=== PATIENT | female | born 1935 | race Caucasian/White ===

== ENCOUNTER 2024-02-29 11:17 | Inpatient (IN) ==
[2024-02-29] MEDS ORDERED: OLANZapine 10 MG VIAL IM PRN (12:30)
[2024-02-29] MEDS ORDERED: MAGNESIUM HYDROXIDE 400 MG/5 ML ORAL.SUSP PO PRN (12:30)
--- NOTE | 2024-02-29 12:40 | Internal Medicine H&P ---
Internal Medicine - H&P: HPI History of Present Illness Chief complaint: INCREASED PARANOIA Severe Sepsis Narrative: Pt originally admitted to [facility] due to paranoid behavior. She started to deteriorate with worsening mental status, poor po intake, and abnormal CXR/labs/vitals. WBCs were elevate, she became febrile, and HR was >100. Chest x-ray concerning for retrocardiac infiltrate versus mass. Her Flu, COVID, and U/A results were benign. Currently reports that she is hurting in her lower abdomen with history of recurrent diverticulitis. Also reports she went 8 [place] [facility] [place]. History is limited by recent paranoid delusions. Review of Systems Status of ROS 10 or more systems reviewed and unremark able except as noted in history and below and unobtainable due to mental status [facility] Medical History (Updated 02/29/24 @ 14:31 by Zana Sanchez MD) Generalized anxiety disorder Adult failure to thrive Edema, unspecified GERD without esophagitis Other specified disorders of bone density and structure, left lower leg Cachexia Venous insufficiency (chronic) (peripheral) Insomnia Anxiety CHF (congestive heart failure) Social History (Updated 02/23/24 @ 23:33 by Nay Cheung [facility]) Smoking status: never smoker Nicotine containing products detail: Patient denies any use of nicotine Family reported no history of tobacco INTERVENTION: patient refused Second hand tobacco smoke exposure: No Within the past year, how often did you have a drink containing alcohol: never Within the past year, how often did you have six or more drinks on one occasion: never Score interpretation: A score less than 3 is consistent with normal alcohol consumption. Alcohol Details: Patient denies any use of any type of alcohol Family reported no history of alcohol INTERVENTION: patient refused Non-prescribed substance use: denies use Non-prescribed substance use details: Patient denies any use of any type of illegal drugs Family reported no history of drug use INTERVENTION: patient refused What is your current living situation: I presently have a place to live Problems where you live: no known problems Problems where you live details: Patient currently a resident of [facility]; this is her second placement since the middle of 12/03 In the past 12 months, utilities in danger of being shut off: no In past 12 months, lack of transportation kept you from medical appts, meetings, work, or getting things needed for daily living: No How hard is it for you to pay for the very basics like food, housing, medical care, and heating: not applicable Past 12 mos, fear food will run out before able to buy more: never true In past 12 months, food didn't last until money to buy more: never true Are you following a diet prescribed by a doctor: Yes Are you following a special diet: Yes Dietary Practices Comments: SNF SW reported regular diet with SATNAM Do you want help finding or keeping work or a job: I do not need or want help Previous occupational history: 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 [employer] Known occupational exposures/hazards: No Known occupational exposures/hazards details: Per Patient Occupational History Comment: 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 [employer] Highest level of school completed/degree received: decline to answer Do you want help with school or training: No Education Comment: Patient reported she graduated from high school Physical activity type: walking Physical activity type details: per patient How many days of moderate to strenuous exercise, like a brisk walk, did you do in the last 7 days: 0 Leisure activities: clubs, art, music, games, fishing and other Leisure activities details: Patient reported she was very involved in her public life Caffeine: No Are you now , , , , never or living with a partner: In a typical week, how many times do you talk on the telephone with family, friends, or neighbors: once per week How often do you get together with friends or relatives: once per week How often do you attend sikh or advent services: 4 or more times per year Do you belong to any clubs or organizations such as sikh groups unions, fraternal or athletic groups, or school groups: yes Total score: 3 Score interpretation: A score of greater than or equal to 2 indicates the lowest level of social isolation. Within the last year, have you been humiliated or emotionally abused in other ways by your partner or ex-partner: no Within the last year, have you been afraid of your partner or ex-partner: no Within the last year, have you been raped or forced to have any kind of sexual activity by your partner or ex-partner: no Within the last year, have you been kicked, hit, slapped, or otherwise physically hurt by your partner or ex-partner: no HARK total score: 0 HARK score interpretation: A score of zero indicates the patient is most likely not affected by intimate partner violence (IPV). How often does anyone, including family, friends and others, physically hurt you : never How often does anyone, including family, friends and others, insult or talk down to you: sometimes How often does anyone, including family, friends and others, threaten you with h arm: sometimes How often does anyone, including family, friends and others, scream or curse at you: never Firearms in home: no Firearms in home details: Patient is a resident at [facility] Do you need help with ADLs: I don't need any help Due to a physical, mental, or emotional condition, do you have difficulty doing errands alone such as visiting a doctor's office or shopping: Yes Little interest or pleasure in doing things: several days Feeling down, depressed, or hopeless: several days Feel stressed/tense/nervous/anxious/difficulty sleeping: only a little Life stressors: divorce/separation and unknown source of stress Life stressor details: Patient reports she misses her and her home Due to disability, difficulty making decisions: Yes (She is restless. limited cognitive ability.) Do you think of yourself as: straight/heterosexual Gender Identity: female Are you currently sexually active: No Are you using contraception or practicing any form of control: No service: No Comment: Patient reported she worked for the but don't join the Meds Home Medications and Allergies Home Medications Medication Instructions Recorded Confirmed Type cholecalciferol (vitamin D3) 25 2,000 unit PO DAILY 02/19/24 02/19/24 History mcg (1,000 unit) capsule diazepam 5 mg tablet (Valium) 5 mg PO BEDTIME anxiety 02/19/24 02/19/24 History ferrous fum-vit C-vit B12-FA 200 1 cap PO DAILY 02/19/24 02/19/24 History mg-250 mg-0.01 mg-1 mg capsule (Hematogen FA) multivitamin with minerals (DAILY 1 tab PO DAILY 02/19/24 02/19/24 History VITAMIN FORMULA-MINERALS tablet) pantoprazole 40 mg tablet,delayed 40 mg PO DAILY 02/19/24 02/19/24 History release (Protonix) trazodone 50 mg tablet 50 mg PO BEDTIME 02/19/24 02/19/24 History acetaminophen 325 mg tablet 650 mg (2 x 325 mg) PO Q4H PRN 02/29/24 Rx Fever Of 100.5 Or Greater #30 tabs cholecalciferol (vitamin D3) 25 2,000 unit PO DAILY vitamin 02/29/24 Rx mcg (1,000 unit) capsule (Vitamin deficiency #30 caps D3) ferrous fum-vit C-vit B12-FA 200 1 cap PO DAILY vitamin deficiency 02/29/24 Rx mg-250 mg-0.01 mg-1 mg capsule #30 caps lorazepam 0.5 mg tablet 0.25 mg (1/2 x 0.5 mg) PO Q4H PRN 02/29/24 Rx Give if CIWA>8 as needed #60 tabs magnesium hydroxide 400 mg/5 mL 2,400 mg (30 mL) PO DAILY PRN 02/29/24 Rx oral suspension (Milk of Magnesia) Constipation #300 mL megestrol 40 mg tablet 40 mg PO BID appetite stimulant 02/29/24 Rx #60 tabs multivitamin with folic acid 400 1 tab PO DAILY vitamin deficiency 02/29/24 Rx mcg tablet (Tab-A-Lucho) #30 tabs olanzapine 10 mg intramuscular 2.5 mg IM TID PRN Give if pt 02/29/24 Rx solution refuses PO zyprexa #3 ea olanzapine 5 mg tablet 2.5 mg (1/2 x 5 mg) PO TID 02/29/24 Rx psychosis #90 tabs pantoprazole 40 mg tablet,delayed 40 mg PO DAILY GERD #30 tabs 02/29/24 Rx release Allergies Allergy/AdvReac Type Severity Reaction Status Date / Time doxycycline Allergy Unknown Verified 02/18/24 23:34 erythromycin base Allergy Unknown Verified 02/18/24 23:34 furosemide (From Lasix) Allergy Unknown Verified 02/18/24 23:34 ibuprofen Allergy Unknown Verified 02/18/24 23:34 Penicillins Allergy Unknown Verified 02/18/24 23:34 Sulfa (Sulfonamide Allergy Unknown Verified 02/18/24 23:34 Antibiotics) tetracycline Allergy Unknown Verified 02/18/24 23:34 Exam Constitutional: abnormal general appearance (chronically ill) and (frail appearing), no apparent distress, abnormal body habitus (underweight), limitations noted (altered mental status) and (physical limitations) and alert HENMT: normocephalic, head/scalp atraumatic and hearing grossly normal bilaterally Eyes: PERRL, EOMs intact bilaterally and conjunctivae normal Neck/C-Spine: visual inspection normal and trachea midline Respiratory: breath sounds unequal, normal respiratory effort and auscultation abnormal (breath sounds absent) (LLL) Cardiovascular: heart rate abnormal (tachycardic), regular rhythm noted and murmur noted (systolic) Gastrointestinal: abdomen soft to palpation, nontender to palpation, nondistended and normoactive bowel sounds Genitourinary: no CVA tenderness Extremities: normal to inspection, normal to palpation and no tenderness Neurology: gait abnormality noted and speech abnormality noted Psychiatry: mental status abnormal, orientation abnormal, thought process abnormality noted, cooperative, affect abnormality noted and psychomotor abnormality noted Assessment and Plan Assessment and Plan (1) Severe sepsis: Assessment and Plan: WBCs, temp, HR, likely LLL pneumonia. RPP, Vanc/Rocephin/Zithromax, IVFs, CT C/A/P pending. Flu, COVID, U/A negative. Code(s): A41.9 - Sepsis, unspecified organism; R65.20 - Severe sepsis without septic shock (2) Left lower lobe pneumonia: Assessment and Plan: Consider aspiration. CT chest pending. Will worry about getting CT chest with contrast after she is more stable. Qualifiers: Pneumonia type: due to unspecified organism Qualified Code(s): J18.9 - Pneumonia, unspecified organism Code(s): J18.9 - Pneumonia, unspecified organism (3) Adult failure to thrive: Assessment and Plan: Unrestricted diet based on ST recommendations. IV fluids for now. Code(s): R62.7 - Adult failure to thrive (4) Paranoid disorder: Assessment and Plan: Continue meds per psychiatric team. Code(s): F22 - Delusional disorders (5) Major depressive disorder, recurrent, moderate: Assessment and Plan: Per psychiatric team, no med changes. Code(s): F33.1 - Major depressive disorder, recurrent, moderate (6) Cachexia: Assessment and Plan: See above Code(s): R64 - Cachexia (7) Delusional disorder: Assessment and Plan: See above Code(s): F22 - Delusional disorders Plan Will treat for left lower lobe pneumonia for now. Will adjust antibiotics after CT and over the next 24-48 hours.
[2024-02-29] MEDS: RINGER'S SOLUTION,LACTATED 1,000 ML IV SCH (12:59)
[2024-02-29] MEDS: VANCOMYCIN HCL 1,000 MG in 0.9 % SODIUM CHLORIDE 250 ML IV ONE (13:00)
--- NOTE | 2024-02-29 13:11 | Discharge Summary ---
DS: Providers Provider Date of admission: 02/29/24 11:17 Primary care physician: Celi Floyd MD Consults: 02/29/24 12:30 Consult to Physical Therapy Routine Comment: Consulting Provider: Reason for consultation: BLE WEAKNESS Has provider been notified: Yes Physician Instructions: PT EVALUATION Discharging clinician: Celi Floyd Anticipated date of discharge: 02/29/24 DS: Diagnosis Discharge Diagnosis (1) Severe sepsis: (2) Adult failure to thrive: (3) Paranoid disorder: (4) Major depressive disorder, recurrent, moderate: DS: Summary Hospital Course Hospital Course: Patient is a 88 year old WF that was seen today in the long term unit for discharge visit for approximately 20 minutes [id number] by provider Nereida Ramos at [address] [place] [address] in [place], [place]. Patient was observed sitting in a gerichair with her eyes closed. She received IV antibiotics through the night. Vancomycin and some fluids. She woke up for provider and provider gave her some sips of water. Patient will be discharged to the longterm facility on the medical/surgical floor today. Patient will be discharged on some psychiatric medications and these medications have been prescribed to decrease the likelihood of patient relapsing with symptoms of agitation, aggression, or irritability. Patients speech is clear but soft and low. Patient is alert and oriented. Patient is calm and cooperative. Patient denies having any suicidal or homicidal ideations. Patient makes good eye contact and answers questions appropriately. Provider did not observe any auditory or visual hallucinations. senior principal architect reported that patient was calm and cooperative. Patient slept approximately 3 hours last night. Patient requires some assistance with activities of daily living from the staff. Patient is able to ambulate on the unit. Patient was transferred to the medical/surgical floor for evaluation. I have discussed this plan of care with my collaborating physician, Dr. Celi Floyd and he is in agreement with this plan. Dr. Floyd is immediately available for me if requested. The plan has no changes at this time. Level of care: 42261 Length of visit and documentation: 30 minutes Status at Discharge Functional status at discharge: bed bound Overall status at discharge: other Time Spent with Patient Time attestation: Total time spent providing and/or coordinating discharge services: 30 minutes Time spent: greater than 30 minutes Exam Constitutional: alert Vital Signs - 24 hr 02/27/24 23:54 02/28/24 06:16 Temperature 98.1 F 97.6 F Pulse Rate [Left] 98 H 96 H Respiratory Rate 18 18 Blood Pressure [Le ft Arm] 153/67 128/60 Pulse Oximetry 97 97 Oxygen Delivery Me thod Room Air Room Air Extremities: She is very thin. Neurology: solo truck driver II-XII intact Psychiatry: Mental Status Exam documented in the separate MSE (In H&P under other) cooperative Feel stressed/tense/nervous/anxious/difficulty sleeping: only a little Due to disability, difficulty making decisions: Yes (She is restless. limited cognitive ability.) DS: Data Data Completed and Pending Completed studies during hospitalization: EKG, UA, labs Pending studies at discharge: none Labs on day of discharge: none Discharge Plan Discharge Disposition: [facility] Hospital Condition: Other Discharge Medications: New ferrous fum-vit C-vit B12-FA 200-250-0.01-1 mg Capsule 1 cap PO DAILY Qty: 30 0RF acetaminophen 325 mg Tablet 650 mg PO Q4H PRN (Reason: Fever Of 100.5 Or Greater) Qty: 30 0RF cholecalciferol (vitamin D3) [Vitamin D3] 25 mcg (1,000 unit) Capsule 2,000 unit PO DAILY Qty: 30 0RF olanzapine 5 mg Tablet 2.5 mg PO TID Qty: 90 0RF lorazepam 0.5 mg Tablet 0.25 mg PO Q4H PRN (Reason: Give if CIWA>8 as needed) Qty: 60 0RF magnesium hydroxide [Milk of Magnesia] 400 mg/5 mL Suspension 2,400 mg PO DAILY PRN (Reason: Constipation) Qty: 300 0RF pantoprazole 40 mg Tablet,Delayed Release (Dr/Ec) 40 mg PO DAILY Qty: 30 0RF megestrol 40 mg Tablet 40 mg PO BID Qty: 60 0RF olanzapine 10 mg Recon Soln 2.5 mg IM TID PRN (Reason: Give if pt refuses PO zyprexa) Qty: 3 0RF multivitamin with folic acid [Tab-A-Lucho] 400 mcg Tablet 1 tab PO DAILY Qty: 30 0RF No Action cholecalciferol (vitamin D3) 25 mcg (1,000 unit) capsule 2,000 unit PO DAILY Hematogen FA 200-250-0.01-1 mg capsule 1 cap PO DAILY DAILY VITAMIN FORMULA-MINERALS Tablet 1 tab PO DAILY pantoprazole [Protonix] 40 mg tablet,delayed release (DR/EC) 40 mg PO DAILY trazodone 50 mg tablet 50 mg PO BEDTIME diazepam [Valium] 5 mg tablet 5 mg PO BEDTIME Discharge Orders: Discharge Order (Routine); Ordered 02/29/24 Ordered By: Nereida Ramos Activity: increase activity as tolerated and resume usual activities as tolerated Diet: low salt diet and regular diet Hospital Course: Patient is a 88 year old WF that was seen today in the long term unit for osorio marquez visit for approximately 20 minutes [id number] by provider Nereida Ramos at [address] [place] [address] in [place], [place]. Patient was observed sitting in a gerichair with her eyes closed. She received IV antibiotics through the night. Vancomycin and some fluids. She woke up for provider and provider gave her some sips of water. Patient will be discharged to the longterm facility on the medical/surgical floor today. Patient will be discharged on some psychiatric medications and these medications have been prescribed to decrease the likelihood of patient relapsing with symptoms of agitation, aggression, or irritability. Patients speech is clear but soft and low. Patient is alert and oriented. Patient is calm and cooperative. Patient denies having any suicidal or homicidal ideations. Patient makes good eye contact and answers questions appropriately. Provider did not observe any auditory or visual hallucinations. senior principal architect reported that patient was calm and cooperative. Patient slept approximately 3 hours last night. Patient requires some assistance with activities of daily living from the staff. Patient is able to ambulate on the unit. Patient was transferred to the medical/surgical floor for evaluation. I have discussed this plan of care with my collaborating physician, Dr. Celi Floyd and he is in agreement with this plan. Dr. Floyd is immediately available for me if requested. The plan has no changes at this time. Level of care: 79428 Length of visit and documentation: 30 minutes Plan of Treatment: The overall goal of treatment is to adjust medications to treat increased agitation, aggression, depression, labile mood and affect all likely secondary to declining cognitive functioning. MEDICAL TREATMENT The patient will have a medical workup completed by the hospitalist on admission and as needed throughout the hospitalization to manage acute and chronic medical comorbidities. DISCHARGE CRITERIA: Upon discharge the patient will show improvement in overall level of functioning and behavior. Patients will be free of combative, aggressive, and hostile behaviors. Patients will be free from psychosis and will show improved insight and judgement. Patients will not have any bothersome auditory or visual hallucinations or paranoid ideations. Patient will be free of suicidal ideations or threats of harm to others. ESTIMATED LENGTH OF HOSPITALIZATION: 7-14 days Reason for hospitalization: 1. Potential danger to self and others 2. Impaired social, family and occupational function. 3. Failure of outpatient treatment. 4. Need for intensive structured inpatient treatment. 5. Need for medication stabilization. The overall goal of treatment is to adjust medications to treat bizarre delusions and manic light behaviors. Staff will continue to monitor for unwanted side effects, metabolic symptoms, changes in mood, behavior or symptoms of psychosis. Attempt to stabilize auditory hallucinations and lessen discomfort due to paranoia. Continue to monitor for unwanted side effects to include EPS/TD, metabolic symptoms, changes in mood, behavior or symptoms of psychosis. Monitor for daytime drowsiness or somnolence and unsteadiness. Providers, nurses, and social workers will provide relevant psychoeducation to the patient related to diagnosis, treatment and disposition. The patient will be discussed in treatment team meetings daily and as needed as we work towards transitioning the patient to an appropriate disposition upon discharge. Medications: Stop: Discontinue: Diazepam (Valium) 5mg take 5mg by mouth at bedtime for anxiety and irritability. Discontinue: Trazodone 50mg take 50mg by mouth at bedtime for insomnia. Start CIWA Protocol: Do CIWA every 4 hours. If CIWA > 8, give patient 0.25mg of Lorazepam. Start: Add Lorazepam 0.25mg give 0.25mg if CIWA > 8. every 4 hours. 02/21/2024: Medications: Start: Add Zyprexa 2.5mg take 2.5mg by mouth two times a day for psychosis, agitation, and mood stability. Add Zyprexa 2.5mg IM give 2.5mg IM as needed two times a day for psychosis, agitation, and mood stability if patient refuses her PO Zyprexa. 02/22/2024: Will continue to monitor patients behaviors and will make medication adjustments as needed. 02/23/2024: Will continue to monitor patients behaviors and will make changes as needed. 02/24/2024: Medications: Stop: Discontinue Zyprexa 2.5mg take 2.5mg by mouth two times a day for psychosis, agitation, and mood stability. Start: Add Zyprexa 2.5mg take 2.5mg by mouth three times a day for psychosis, agitation, and mood stability. 02/25/2024: Will continue to monitor patients behaviors and will make medication changes as needed. 02/28/2024: Labs to be drawn. CBC and CMP.
[2024-02-29] MEDS: ACETAMINOPHEN 325 MG TABLET PO PRN (16:00)
[2024-02-29] MEDS: OLANZapine 5 MG TABLET PO SCH (16:00)
[2024-02-29] MEDS: LEVOFLOXACIN/D5W 500 MG/100 ML 500 MG/100 ML PIGGYBACK IV SCH (18:16)
[2024-02-29] MEDS: MEGESTROL ACETATE 40 MG TABLET PO SCH (20:23)
[2024-03-01] MEDS: RINGER'S SOLUTION,LACTATED 500 ML IV ONE (02:58)
[2024-03-01 06:42] LABS: Basophils%(Percent) Auto 0.3 (0.1-0.85); Eosinophils#(Absolute)Auto 0.1 (0.0-0.2); Eosinophils%(Percent) Auto 0.7 % (0.4-2.8); Granulocytes % - Auto 88.3 % (47.8-71.3); Hematocrit 25.8 % (35.9-46.7); Mean Corpuscular Volume 87.9 fl (81.0-93.7); Monocytes #(Absolute)- Auto 0.7 (1.1-3.1); Monocytes %(Percent)- Auto 6.5 % (3.6-9.8); Platelet Count 172 K/uL (152-353); White Blood Count 10.2 K/uL (4.3-9.3)
[2024-03-01 06:48] LABS: Potassium 4.2 mmol/L (3.6-5.2)
[2024-03-01] MEDS ORDERED: CEFTRIAXONE SODIUM 1 GM in 0.9 % SODIUM CHLORIDE MB+ 50 ML IV SCH (09:00)
[2024-03-01] MEDS: CHOLECALCIFEROL 1,000 UNITS TABLET (25 MCG) PO SCH (09:12)
[2024-03-01] MEDS: PANTOPRAZOLE SODIUM 40 MG TABLET.DR PO SCH (09:13)
[2024-03-01] MEDS: MULTIVITAMIN TABLET PO SCH (09:13)
[2024-03-01] MEDS: FOLIC ACID PO SCH (09:38)
[2024-03-01] MEDS: ASCORBIC ACID PO SCH (09:38)
[2024-03-01] MEDS: CYANOCOBALAMIN PO SCH (09:38)
[2024-03-01] MEDS: FERROUS FUMARATE PO SCH (09:38)
[2024-03-01] MEDS: RINGER'S SOLUTION,LACTATED 500 ML IV SCH (10:23)
[2024-03-01] MEDS: VANCOMYCIN HCL 500 MG 500 MG in 0.9 % SODIUM CHLORIDE MB+ 100 ML IV ONE (10:31)
[2024-03-01] MEDS: IPRATROPIUM/ALBUTEROL SULFATE 3 ML AMPUL.NEB INH SCH (15:54)
--- NOTE | 2024-03-01 15:59 | History & Physical Report ---
H&P: HPI History of Present Illness Chief complaint: INCREASED PARANOIA Severe Sepsis Narrative: Pt originally admitted to [facility] due to paranoid behavior. She started to deteriorate with worsening mental status, poor po intake, and abnormal CXR/labs/vitals. WBCs were elevate, she became febrile, and HR was >100. Chest x-ray concerning for retrocardiac infiltrate versus mass. Her Flu, COVID, and U/A results were benign. Currently reports that she is hurting in her lower abdomen with history of recurrent diverticulitis. Also reports [place] [facility] [place] History is limited by recent paranoid delusions. Patient admitted to med/surg for observation and treatment. Review of Systems Status of ROS 10 or more systems reviewed and unremark able except as noted in history and below and unobtainable due to mental status [facility] Medical History (Updated 02/29/24 @ 14:31 by Zana Sanchez MD) Generalized anxiety disorder Adult failure to thrive Edema, unspecified GERD without esophagitis Other specified disorders of bone density and structure, left lower leg Cachexia Venous insufficiency (chronic) (peripheral) Insomnia Anxiety CHF (congestive heart failure) Social History (Updated 02/23/24 @ 23:33 by Nay Cheugn [facility]) Smoking status: never smoker Nicotine containing products detail: Patient denies any use of nicotine Family reported no history of tobacco INTERVENTION: patient refused Second hand tobacco smoke exposure: No Within the past year, how often did you have a drink containing alcohol: never Within the past year, how often did you have six or more drinks on one occasion: never Score interpretation: A score less than 3 is consistent with normal alcohol consumption. Alcohol Details: Patient denies any use of any type of alcohol Family reported no history of alcohol INTERVENTION: patient refused Non-prescribed substance use: denies use Non-prescribed substance use details: Patient denies any use of any type of illegal drugs Family reported no history of drug use INTERVENTION: patient refused What is your current living situation: I presently have a place to live Problems where you live: no known problems Problems where you live details: Patient currently a resident of [facility]; this is her second placement since the middle of 12/03 In the past 12 months, utilities in danger of being shut off: no In past 12 months, lack of transportation kept you from medical appts, meetings, work, or getting things needed for daily living: No How hard is it for you to pay for the very basics like food, housing, medical care, and heating: not applicable Past 12 mos, fear food will run out before able to buy more: never true In past 12 months, food didn't last until money to buy more: never true Are you following a diet prescribed by a doctor: Yes Are you following a special diet: Yes Dietary Practices Comments: SNF SW reported regular diet with SATNAM Do you want help finding or keeping work or a job: I do not need or want help Previous occupational history: 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 [employer] Known occupational exposures/hazards: No Known occupational exposures/hazards details: Per Patient Occupational History Comment: 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 [employer] Highest level of school completed/degree received: decline to answer Do you want help with school or training: No Education Comment: Patient reported she graduated from high school Physical activity type: walking Physical activity type details: per patient How many days of moderate to strenuous exercise, like a brisk walk, did you do in the last 7 days: 0 Leisure activities: clubs, art, music, games, fishing and other Leisure activities details: Patient reported she was very involved in her public life Caffeine: No Are you now , , , , never or living with a partner: In a typical week, how many times do you talk on the telephone with family, friends, or neighbors: once per week How often do you get together with friends or relatives: once per week How often do you attend sabianist or anabaptism services: 4 or more times per year Do you belong to any clubs or organizations such as sabianist groups unions, fraternal or athletic groups, or school groups: yes Total score: 3 Score interpretation: A score of greater than or equal to 2 indicates the lowest level of social isolation. Within the last year, have you been humiliated or emotionally abused in other ways by your partner or ex-partner: no Within the last year, have you been afraid of your partner or ex-partner: no Within the last year, have you been raped or forced to have any kind of sexual activity by your partner or ex-partner: no Within the last year, have you been kicked, hit, slapped, or otherwise physic ally hurt by your partner or ex-partner: no HARK total score: 0 HARK score interpretation: A score of zero indicates the patient is most likely not affected by intimate partner violence (IPV). How often does anyone, including family, friends and others, physically hurt you : never How often does anyone, including family, friends and others, insult or talk down to you: sometimes How often does anyone, including family, friends and others, threaten you with harm: sometimes How often does anyone, including family, friends and others, scream or curse at you: never Firearms in home: no Firearms in home details: Patient is a resident at [facility] Do you need help with ADLs: I don't need any help Due to a physical, mental, or emotional condition, do you have difficulty doing errands alone such as visiting a doctor's office or shopping: Yes Little interest or pleasure in doing things: several days Feeling down, depressed, or hopeless: several days Feel stressed/tense/nervous/anxious/difficulty sleeping: only a little Life stressors: divorce/separation and unknown source of stress Life stressor details: Patient reports she misses her and her home Due to disability, difficulty making decisions: Yes (She is restless. limited cognitive ability.) Do you think of yourself as: straight/heterosexual Gender Identity: female Are you currently sexually active: No Are you using contraception or practicing any form of control: No service: No Comment: Patient reported she worked for the but don't join the [employer] [facility] Home Medications and Allergies Home Medications Medication Instructions Recorded Confirmed Type cholecalciferol (vitamin D3) 25 2,000 unit PO DAILY 02/19/24 02/19/24 History mcg (1,000 unit) capsule diazepam 5 mg tablet (Valium) 5 mg PO BEDTIME anxiety 02/19/24 02/19/24 History ferrous fum-vit C-vit B12-FA 200 1 cap PO DAILY 02/19/24 02/19/24 History mg-250 mg-0.01 mg-1 mg capsule (Hematogen FA) multivitamin with minerals (DAILY 1 tab PO DAILY 02/19/24 02/19/24 History VITAMIN FORMULA-MINERALS tablet) pantoprazole 40 mg tablet,delayed 40 mg PO DAILY 02/19/24 02/19/24 History release (Protonix) trazodone 50 mg tablet 50 mg PO BEDTIME 02/19/24 02/19/24 History acetaminophen 325 mg tablet 650 mg (2 x 325 mg) PO Q4H PRN 02/29/24 Rx Fever Of 100.5 Or Greater #30 tabs cholecalciferol (vitamin D3) 25 2,000 unit PO DAILY vitamin 02/29/24 Rx mcg (1,000 unit) capsule (Vitamin deficiency #30 caps D3) ferrous fum-vit C-vit B12-FA 200 1 cap PO DAILY vitamin deficiency 02/29/24 Rx mg-250 mg-0.01 mg-1 mg capsule #30 caps lorazepam 0.5 mg tablet 0.25 mg (1/2 x 0.5 mg) PO Q4H PRN 02/29/24 Rx Give if CIWA>8 as needed #60 tabs magnesium hydroxide 400 mg/5 mL 2,400 mg (30 mL) PO DAILY PRN 02/29/24 Rx oral suspension (Milk of Magnesia) Constipation #300 mL megestrol 40 mg tablet 40 mg PO BID appetite stimulant 02/29/24 Rx #60 tabs multivitamin with folic acid 400 1 tab PO DAILY vitamin deficiency 02/29/24 Rx mcg tablet (Tab-A-Lucho) #30 tabs olanzapine 10 mg intramuscular 2.5 mg IM TID PRN Give if pt 02/29/24 Rx solution refuses PO zyprexa #3 ea olanzapine 5 mg tablet 2.5 mg (1/2 x 5 mg) PO TID 02/29/24 Rx psychosis #90 tabs pantoprazole 40 mg tablet,delayed 40 mg PO DAILY GERD #30 tabs 02/29/24 Rx release Allergies Allergy/AdvReac Type Severity Reaction Status Date / Time doxycycline Allergy Unknown Verified 02/18/24 23:34 erythromycin base Allergy Unknown Verified 02/18/24 23:34 furosemide (From Lasix) Allergy Unknown Verified 02/18/24 23:34 ibuprofen Allergy Unknown Verified 02/18/24 23:34 Penicillins Allergy Unknown Verified 02/18/24 23:34 Sulfa (Sulfonamide Allergy Unknown Verified 02/18/24 23:34 Antibiotics) tetracycline Allergy Unknown Verified 02/18/24 23:34 Exam Exam: Patient in correia's position with tech at bedside upon entering room for exam. Constitutional: abnormal general appearance (chronically ill) and (frail appearing), no apparent distress, abnormal body habitus (underweight), limitations noted (altered mental status) and (physical limitations) and alert Vital Signs - 24 hr 02/29/24 15:59 02/29/24 16:00 02/29/24 19:13 Temperature 97.6 F 98.0 F Pulse Rate [Left] 98 H 80 Respiratory Rate 16 16 Blood Pressure [Le ft Arm] 101/60 94/42 Pulse Oximetry 97 91 L 93 L Oxygen Delivery Me thod Nasal Cannula Nasal Cannula Nasal Cannula Oxygen Flow Rate 2 2 Fraction of Inspir ed Oxygen 28 02/29/24 23:36 03/01/24 03:45 03/01/24 07:31 Temperature 98.8 F 98.9 F 97.3 F L Pulse Rate [Left] 81 88 108 H Respiratory Rate 18 19 22 Blood Pressure [Le ft Arm] 97/41 99/48 111/61 Pulse Oximetry 93 L 92 L 95 Oxygen Delivery Me thod Nasal Cannula Nasal Cannula Nasal Cannula Oxygen Flow Rate 2 Fraction of Inspir ed Oxygen 03/01/24 11:53 Temperature 98.0 F Pulse Rate [Left] 105 H Respiratory Rate 21 Blood Pressure [Le ft Arm] 106/54 Pulse Oximetry 96 Oxygen Delivery Me thod Nasal Cannula Oxygen Flow Rate 2 Fraction of Inspir ed Oxygen HENMT: normocephalic, head/scalp atraumatic and hearing grossly normal bilaterally Eyes: PERRL, EOMs intact bilaterally and conjunctivae normal Neck/C-Spine: visual inspection normal and trachea midline Lymph: no lymphadenopathy noted and no lymphedema noted Chest: inspection of chest normal and palpation of chest normal Respiratory: breath sounds unequal, normal respiratory effort and auscultation abnormal (breath sounds absent) (LLL) Cardiovascular: heart rate abnormal (tachycardic), regular rhythm noted and murmur noted (systolic) Gastrointestinal: abdomen soft to palpation, nontender to palpation, nondistended and normoactive bowel sounds Genitourinary: no CVA tenderness Back/Pelvis: spine normal to inspection Extremities: normal to inspection, normal to palpation and no tenderness She is very thin. Neurology: casino floor person II-XII intact, gait abnormality noted and speech abnormality noted Psychiatry: Mental Status Exam documented in the separate MSE (In H&P under other) mental status abnormal, orientation abnormal, thought process abnormality noted, cooperative, affect abnormality noted and psychomotor abnormality noted Skin: skin color normal Assessment and Plan Assessment and Plan (1) Severe sepsis: Assessment and Plan: WBCs, temp, HR, likely LLL pneumonia. RPP, Vanc/Rocephin/Zithromax, IVFs, CT C/A/P pending. Flu, COVID, U/A negative. Code(s): A41.9 - Sepsis, unspecified organism; R65.20 - Severe sepsis without septic shock (2) Left lower lobe pneumonia: Assessment and Plan: Consider aspiration. CT chest pending. Will worry about getting CT chest with contrast after she is more stable. Qualifiers: Pneumonia type: due to unspecified organism Qualified Code(s): J18.9 - Pneumonia, unspecified organism Code(s): J18.9 - Pneumonia, unspecified organism (3) Adult failure to thrive: Assessment and Plan: Unrestricted diet based on ST recommendations. IV fluids for now. Code(s): R62.7 - Adult failure to thrive (4) Paranoid disorder: Assessment and Plan: Continue meds per psychiatric team. Code(s): F22 - Delusional disorders (5) Major depressive disorder, recurrent, moderate: Assessment and Plan: Per psychiatric team, no med changes. Code(s): F33.1 - Major depressive disorder, recurrent, moderate (6) Cachexia: Assessment and Plan: See above Code(s): R64 - Cachexia (7) Delusional disorder: Assessment and Plan: See above Code(s): F22 - Delusional disorders Plan Cholecalciferol 2,000 unit PO Daily Megastrol Acetate 40 mg PO BID Olanzapine 2.5 mg PO TID Pantoprazole Sodium 40 mg PO Daily Ferrous Fum-Vit C-Vit B12-Fa (1) cap PO Daily Multivitamins (1) PO Daily Levofloxacin/Dextrose 500 mg in 100 mls @ 50 mls/hr IV Q24H Albuterol Sulfate 3 ml INH RQ4 Budesonide 1 mg INH RBID Lorazepam 0.25 mg PO Q4H PRN Magnesium Hydroxide 2,400 mg PO Daily PRN Olanzapine 2.5 mg IM TID PRN Acetaminophen 650 mg PO Q4H PRN Continue to monitor labs and symptoms. Results Labs Labs: CBC WBC 10.2 K/uL (4.3-9.3) H 03/01/24 06:30 RBC 2.9 M/uL (4.00-5.50) L 03/01/24 06:30 Hgb 8.8 gm/dL (12.5-15.8) L 03/01/24 06:30 Hct 25.8 % (35.9-46.7) L 03/01/24 06:30 MCV 87.9 fl (81.0-93.7) 03/01/24 06:30 MCH 29.9 pg (27.6-32.2) 03/01/24 06:30 MCHC 34.0 g/dl (33.1-35.3) 03/01/24 06:30 RDW 17.2 % (11.4-14.2) H 03/01/24 06:30 Plt Count 172 K/uL (152-353) 03/01/24 06:30 MPV 8.9 fl (6.9-10.8) 03/01/24 06:30 Gran % 88.3 % (47.8-71.3) H 03/01/24 06:30 Lymph % (Auto) 4.2 % (20.0-43.0) L 03/01/24 06:30 [place] % (Auto) 6.5 % (3.6-9.8) 03/01/24 06:30 Eos % (Auto) 0.7 % (0.4-2.8) 03/01/24 06:30 Baso % (Auto) 0.3 (0.1-0.85) 03/01/24 06:30 Lymph # (Auto) 0.4 (1.1-3.1) L 03/01/24 06:30 [place] # (Auto) 0.7 (1.1-3.1) L 03/01/24 06:30 Eos # (Auto) 0.1 (0.0-0.2) 03/01/24 06:30 Baso # (Auto) 0.0 (0.0-0.1) 03/01/24 06:30 Absolute Gran (auto) 9.0 (2.3-6.0) H 03/01/24 06:30 BMP Sodium 141 mmol/L (136-145) 03/01/24 06:30 Potassium 4.2 mmol/L (3.6-5.2) 03/01/24 06:30 Chloride 108.0 mmol/L (98-107) H 03/01/24 06:30 Carbon Dioxide 25 mmol/L (21-32) 03/01/24 06:30 Anion Gap 8.0 mEq/L (4-14) 03/01/24 06:30 BUN 29 mg/dL (7-18) H 03/01/24 06:30 Creatinine 0.7 mg/dL (0.6-1.3) 03/01/24 06:30 Estimated GFR 83.1 (>59.9) 03/01/24 06:30 Glucose 84 mg/dL (70-110) 03/01/24 06:30 Calcium 8.4 mg/dL (8.5-10.1) L 03/01/24 06:30 Imaging Imaging ordered: other (CT Chest,Abdomen, and Pelvis w/o contrast) Radiologist's impression: CT CHEST, ABDOMEN, AND PELVIS WITHOUT CONTRAST Date of Service: 02/29/24 HISTORY: feverfever; COMPARISON: None. TECHNIQUE: Axial CT images were obtained through the chest, abdomen, and pelvis without contrast. Coronal reformatted images were included. All CT scans at this facility use dose modulation, iterative reconstruction, and/or weight based dosing when appropriate to reduce radiation dose to as low as reasonably achievable. FINDINGS: Please note that without the use of intravenous contrast, evaluation of organ parenchyma is limited. CHEST: SUPPORT DEVICES: None HEART, VESSELS, AND MEDIASTINUM: Athero sclerotic disease in the and vessels LYMPH NODES: No pathologically enlarged nodes. LUNGS AND PLEURA: Lungs show multifocal areas lung consolidation worst in the lung bases and worst in the left lower lobe AIRWAYS: Within normal limits. ABDOMEN: LIVER: Within normal limits. GALLBLADDER: Absent SPLEEN: Within normal limits. PANCREAS: Within normal limits. KIDNEYS: Within normal limits. ADRENAL GLANDS: Within normal limits. GI TRACT: Moderate hiatal hernia LYMPH NODES: No abnormally enlarged nodes VESSELS: Within normal limits. PERITONEUM / RETROPERITONEUM: No free gas PELVIS: BLADDER: Within normal limits. GENITALS: Uterus is absent BONES: Scoliosis and multilevel degenerative changes in the spine. Multiple prior anterior compression fractures IMPRESSION: Likely bilateral lung pneumonia affecting the lung bases, [id number]. No definite acute abnormality pelvis. Chronic changes as above
[2024-03-01] MEDS: LORazepam 0.5 MG TABLET PO PRN (20:36)
[2024-03-01] MEDS: BUDESONIDE 0.5 MG/2 ML AMPUL.NEB INH SCH (20:37)
[2024-03-02 05:11] LABS: Basophils%(Percent) Auto 0.3 (0.1-0.85); Eosinophils#(Absolute)Auto 0.1 (0.0-0.2); Granulocytes % - Auto 84.7 % (47.8-71.3); Granulocytes#(Absolute)- Auto 7.8 (2.3-6.0); Hematocrit 24.4 % (35.9-46.7); Mean Corpuscular Volume 87.5 fl (81.0-93.7); Monocytes #(Absolute)- Auto 0.9 (1.1-3.1); Monocytes %(Percent)- Auto 9.5 % (3.6-9.8); Platelet Count 185 K/uL (152-353); White Blood Count 9.2 K/uL (4.3-9.3)
[2024-03-02 06:07] LABS: Potassium 3.6 mmol/L (3.6-5.2)
[2024-03-02 08:07] VITALS: BP 112/53; PULSE 94; RESP 18; TEMP 98.5
--- NOTE | 2024-03-02 10:54 | Discharge Summary ---
DS: Providers Provider Date of admission: 02/29/24 11:17 Primary care physician: Celi Floyd MD Admitting clinician: Zana Sanchez Attending physician on admission: Zana Sanchez Consults: 02/29/24 12:30 Consult to Physical Therapy Routine Comment: Consulting Provider: Reason for consultation: BLE WEAKNESS Has provider been notified: Yes Physician Instructions: PT EVALUATION 03/01/24 12:55 Consult to Occupational Therapy Routine Comment: Consulting Provider: Reason for consultation: weakness and pneumonia Physician Instructions: evaluate and treat Consult to Physical Therapy Routine Comment: Consulting Provider: Reason for consultation: weakness and pneumonia Physician Instructions: chest PT and evaluate and treat Attending physician on discharge: Yovana Santillan Discharging clinician: Yovana Santillan Anticipated date of discharge: 03/02/24 DS: Diagnosis Discharge Diagnosis (1) Left lower lobe pneumonia: Qualifiers: Pneumonia type: due to unspecified organism Qualified Code(s): J18.9 - Pneumonia, unspecified organism (2) Paroxysmal sinus tachycardia: (3) Adult failure to thrive: (4) Paranoid disorder: (5) Major depressive disorder, recurrent, moderate: (6) Cachexia: (7) Delusional disorder: (8) Severe sepsis: (9) Pain: (10) History of falling: Plan Cholecalciferol 2,000 unit PO Daily Megestrol Acetate 40 mg PO BID Olanzapine 2.5 mg PO TID Pantoprazole Sodium 40 mg PO Daily Ferrous Fum-Vit C-Vit B12-Fa (1) Cap PO Daily Multivitamins (1) each PO Daily Levofloxacin/Dextrose 500 mg in 100 mls @ 50 mls/hr IV Q24H Albuterol Sulfate 3 ml INH RQ4 Budesonide 1 mg INH RBID Lorazepam 0.25 mg PO Q4H PRN Magnesium Hydroxide 2,400 mg PO Daily PRN Olanzapine 2.5 mg IM TID PRN Acetaminophen 650 mg PO Q4H PRN Patient symptoms and problems have improved and are progressing back to patients baseline. Patient is ready for discharge and transfer back to Long Term Unit. DS: Summary Hospital Course Hospital Course: Patient originally admitted to [facility] due to paranoid behavior. She started to deteriorate with worsening mental status, poor po intake, and abnormal CXR/labs/vitals. WBCs were elevate, she became febrile, and HR was >100. Chest x-ray concerning for retrocardiac infiltrate versus mass. Her Flu, COVID, and U/A results were benign. Currently reports that she is hurting in her lower abdomen with history of recurrent diverticulitis. Also reports she went 8 days between [facility] before admission here. History is limited by recent paranoid delusions. Patient admitted to [facility] for observation and treatment. Patient responded well to treatment plan, hospital stay was uneventful. Acute symptoms and problems have resolved and/or returned to patient's baseline. Patient is medically ready to discharge from [facility] and transfer back to the Long Term Unit here at [facility]. Patient will receive a follow up appointment by medical provider. Status at Discharge Functional status at discharge: independent ambulation Overall status at discharge: patient is progressing back to baseline Time Spent with Patient Time attestation: Total time spent providing and/or coordinating discharge services: Time spent: greater than 30 minutes Exam Exam: Patient resting in correia's position, taking breathing treatment at time of encounter for exam. Constitutional: abnormal general appearance (chronically ill), (lethargic) and (frail appearing), no apparent distress, abnormal body habitus (underweight), li mitations noted (behavioral limitations) and (physical limitations) and level of alertness abnormal (lethargic) Vital Signs - 24 hr 03/01/24 11:53 03/01/24 15:52 03/01/24 16:00 Temperature 98.0 F 98.3 F Pulse Rate [Left] 105 H 99 H Respiratory Rate 21 23 Blood Pressure [Le ft Arm] 106/54 107/54 Pulse Oximetry 96 98 96 Oxygen Delivery Me thod Nasal Cannula Nasal Cannula Oxygen Flow Rate 2 1 03/01/24 19:58 03/01/24 20:39 03/02/24 00:14 Temperature 98.7 F Pulse Rate [Left] 110 H Respiratory Rate 17 Blood Pressure [Le ft Arm] 104/54 Pulse Oximetry 92 L 94 L 94 L Oxygen Delivery Me thod Room Air Oxygen Flow Rate 03/02/24 02:54 03/02/24 03:21 03/02/24 06:23 Temperature 98.7 F Pulse Rate [Left] 130 H 102 H 90 Respiratory Rate 20 Blood Pressure [Le ft Arm] 116/56 Pulse Oximetry 97 Oxygen Delivery Me thod Room Air Oxygen Flow Rate 03/02/24 08:00 03/02/24 10:01 Temperature 98.5 F Pulse Rate [Left] 94 H Respiratory Rate 18 Blood Pressure [Le ft Arm] 112/53 Pulse Oximetry 96 96 Oxygen Delivery Me thod Room Air Oxygen Flow Rate HENMT: normocephalic, head/scalp atraumatic and hearing grossly normal bilaterally Eyes: PERRL, EOMs intact bilaterally and conjunctivae normal Neck/C-Spine: visual inspection normal and trachea midline Lymph: no lymphadenopathy noted and no lymphedema noted Chest: inspection of chest normal and palpation of chest normal Respiratory: breath sounds unequal, normal respiratory effort and auscultation abnormal (breath sounds absent) (LLL) Cardiovascular: heart rate abnormal (tachycardic), regular rhythm noted and murmur noted (systolic) Gastrointestinal: abdomen soft to palpation, nontender to palpation, nondistended and normoactive bowel sounds Genitourinary: no CVA tenderness Back/Pelvis: spine normal to inspection Extremities: normal to inspection, normal to palpation and no tenderness She is very thin. Neurology: hand mixer II-XII intact, gait abnormality noted and speech abnormality noted Psychiatry: Mental Status Exam documented in the separate MSE (In H&P under other) mental status abnormal, orientation abnormal, thought process abnormality noted, cooperative, affect abnormality noted and psychomotor abnormality noted Skin: skin color normal DS: Data Data Completed and Pending Labs on day of discharge: Labs from last 24 hours 03/02/24 03/02/24 09:58 05:10 WBC 9.2 RBC 2.8 L Hgb 8.3 L Hct 24.4 L MCV 87.5 MCH 29.8 MCHC 34.0 RDW 17.6 H Plt Count 185 MPV 8.8 Gran % 84.7 H Lymph % (Auto) 4.5 L [place] % (Auto) 9.5 Eos % (Auto) 1.0 Baso % (Auto) 0.3 Lymph # (Auto) 0.4 L [place] # (Auto) 0.9 L Eos # (Auto) 0.1 Baso # (Auto) 0.0 Absolute Gran (auto) 7.8 H Sodium 142 Potassium 3.6 Chloride 109.0 H Carbon Dioxide 23 Anion Gap 10.0 BUN 21 H Creatinine 0.7 Estimated GFR 83.1 Glucose 108 Calcium 8.3 L Phosphorus 2.7 Magnesium 1.9 Total Bilirubin 0.43 AST 10 L ALT 8 L Alkaline Phosphatase 68 B-Natriuretic Peptide 538.0 H Total Protein 5.9 L Albumin 1.8 L Vancomycin Trough 8.2 Imaging Chest x-ray: Radiologist's impression: Portable chest Date of Service: 02/28/24 HISTORY: Fever COMPARISON: 02/18/2024 FINDINGS: Heart size is normal. Right lung and left upper lung rush are clear. There is rounded abnormal density in the retrocardiac area of the left lower lobe obscuring the medial left hemidiaphragm. This could be due to atelectasis or infiltrate in the left lower lobe or perhaps a pleural lesion or hiatal hernia. Correlation with chest CT WITH CONTRAST is recommended for further evaluation. No pleural effusions are identified. Bony thorax is unremarkable with the exception of likely right-sided chronic rotator cuff disease. IMPRESSION: Rounded area of abnormal density in the retrocardiac area of the left lower lobe obscuring the medial left hemidiaphragm and for which chest CT WITH CONTRAST should be considered for further evaluation. CT Chest, Abdomen, and [place] w/o Contrast: Radiologist's impression: CT CHEST, ABDOMEN, AND PELVIS WITHOUT CONTRAST Date of Service: 02/29/24 HISTORY: feverfever; COMPARISON: None. TECHNIQUE: Axial CT images were obtained through the chest, abdomen, and pelvis without contrast. Coronal reformatted images were included. All CT scans at this facility use dose modulation, iterative reconstruction, and/or weight based dosing when appropriate to reduce radiation dose to as low as reasonably achievable. FINDINGS: Please note that without the use of intravenous contrast, evaluation of organ parenchyma is limited. CHEST: SUPPORT DEVICES: None HEART, VESSELS, AND MEDIASTINUM: Athero sclerotic disease in the and vessels LYMPH NODES: No pathologically enlarged nodes. LUNGS AND PLEURA: Lungs show multifocal areas lung consolidation worst in the lung bases and worst in the left lower lobe AIRWAYS: Within normal limits. ABDOMEN: LIVER: Within normal limits. GALLBLADDER: Absent SPLEEN: Within normal limits. PANCREAS: Within normal limits. KIDNEYS: Within normal limits. ADRENAL GLANDS: Within normal limits. GI TRACT: Moderate hiatal hernia LYMPH NODES: No abnormally enlarged nodes VESSELS: Within normal limits. PERITONEUM / RETROPERITONEUM: No free gas PELVIS: BLADDER: Within normal limits. GENITALS: Uterus is absent BONES: Scoliosis and multilevel degenerative changes in the spine. Multiple prior anterior compression fractures IMPRESSION: Likely bilateral lung pneumonia affecting the lung bases, [id number]. No definite acute abnormality pelvis. Chronic changes as above Discharge Plan Discharge Disposition: er Psychiatric Hosp Condition: Other Anticipated Discharge Date/Time: 03/02/24 10:49 Hospital Course: Patient originally admitted to [facility] due to paranoid behavior. She started to deteriorate with worsening mental status, poor po intake, and abnormal CXR/labs/vitals. WBCs were elevate, she became febrile, and HR was >100. Chest x-ray concerning for retrocardiac infiltrate versus mass. Her Flu, COVID, and U/A results were benign. Currently reports that she is hurting in her lower abdomen with history of recurrent diverticulitis. Also reports she went 8 days between [facility] before admission here. History is limited by recent paranoid del usions. Patient admitted to med/surg for observation and treatment. Patient responded well to treatment plan, hospital stay was uneventful. Acute symptoms and problems have resolved and/or returned to patient's baseline. Patient is medically ready to discharge from med/surg and transfer back to the Long Term Unit here at [facility]. Patient will receive a follow up appointment by medical provider. Discharge Date/Time: 03/02/24 12:37 Discharge Location: [facility] [place] Discharge Comment: pneumonia improved
== END 2024-03-02 12:37 | DRG 871 ==
LOC: MS 11:17
PROVIDERS: ADMIT Family Medicine; ATTEND Family Medicine
DX: I47.9 Paroxysmal tachycardia, unspecified; A41.9 Sepsis, unspecified organism; J18.9 Pneumonia, unspecified organism; F22 Delusional disorders; R62.7 Adult failure to thrive; Z91.81 History of falling; R10.9 Unspecified abdominal pain; R64 Cachexia; F33.1 Major depressive disorder, recurrent, moderate